=== PATIENT | female | born 1965 | race Caucasian/White ===

== ENCOUNTER 2018-05-24 20:40 | Inpatient (IN) | payer BC ==
[~2018-05-24] VITALS: Ht 160 cm; Wt 54.1 kg
[~2018-05-24 20:40] MED LIST: COLACE100 MG PO; PERCOCET 5/31 TABLET PO
[2018-05-24 21:06] LABS: BASOPHIL COUNT 0.1 K/uL (0-0.1); EOSINOPHIL (%) 1.4 % (0-5); EOSINOPHIL COUNT 0.1 K/uL (0-0.3); HEMATOCRIT 38.4 % (36.0-46.0); HEMOGLOBIN 13.3 G/DL (11.9-15.5); IMMATURE GRANULOCYTE (%) 0.3 % (0.0-0.7); LYMPHOCYTE (%) 24.1 % (15-42); LYMPHOCYTE COUNT 2.4 K/uL (1.0-2.8); MCH 30.3 PG (29.0-34.0); MCHC 34.6 G/DL (30.0-36.0); MCV 87.5 FL (83-99); MONOCYTE (%) 8.1 % (3-12); MONOCYTE COUNT 0.8 K/uL (0-0.8); NEUTROPHIL (%) 65.1 % (45-76); NEUTROPHIL COUNT 6.4 K/uL (1.8-6.4); PLATELET COUNT 461 K/uL (156-360); RBC DIS.WIDTH-CV 12.6 % (11.8-14.6); RBC DIS.WIDTH-SD 40.1 % (39-53); RED BLOOD COUNT 4.39 M/uL (3.80-5.20); WHITE BLOOD COUNT 9.9 K/uL (4.1-10.2)
[2018-05-24 21:15] LABS: ALBUMIN 4.3 g/dL (3.2-4.8)
[2018-05-24 21:16] LABS: CHLORIDE 104 mEq/L (99-109); POTASSIUM 3.8 mEq/L (3.7-5.4); SODIUM 140 mEq/L (136-147)
[2018-05-24 21:18] LABS: GLUCOSE 121 mg/dL (70-99); TOTAL PROTEIN 7.5 g/dL (6.4-8.3)
[2018-05-24 21:20] LABS: TOTAL BILIRUBIN 0.3 mg/dL (0.0-1.0)
[2018-05-24 21:21] LABS: ALKALINE PHOSPHATASE 68 IU/L (3-129)
[2018-05-24 21:21] LABS: APPEARANCE SL.HAZY ((CLEAR)); BILIRUBIN NEGATIVE; BLOOD NEGATIVE; COLOR YELLOW ((YELLOW)); GLUCOSE (STRIP) NEGATIVE; KETONES NEGATIVE; LEUKOCYTES MODERATE; NITRITE NEGATIVE; PROTEIN (STRIP) NEGATIVE; SPECIFIC GRAVITY 1.016 (1.000-1.030); UROBILINOGEN 0.2 MG/DL (0.2-1.0)
[2018-05-24 21:22] LABS: CREATININE 0.9 mg/dL (0.6-1.3); GFR ESTIMATE (CALCULATED) > 59 mL/min/
[2018-05-24 21:23] LABS: AST (GOT) 13 IU/L (2-34); UREA NITROGEN (BUN) 10 mg/dL (9-23)
[2018-05-24 21:25] LABS: ALT (GPT) 9 IU/L (3-49); LIPASE 9 U/L (1.0-51.0)
[2018-05-24 21:30] LABS: QUANTITATIVE HCG < 4.0 MIU/ML
[2018-05-24 21:32] LABS: BACTERIA RARE /HPF; EPITHELIAL CELLS RARE /HPF; MUCUS TRACE /LPF; UCUL ADDED? YES; WHITE BLOOD CELLS TNTC /HPF (0-5)
[2018-05-25] VITALS (7 sets, daily range): BP systolic 110–128; BP diastolic 54–62
[2018-05-25] MEDS ORDERED: MAGNESIUM 300300 MG PO (17:15)
[2018-05-25] MEDS ORDERED: VITAMIN B122500 MCG PO (17:15)
[2018-05-25] MEDS ORDERED: TYLENOL REGULA325 MG PO (17:16)
[2018-05-25] MEDS ORDERED: VITAMIN B COMP1 EACH PO (17:16)
[2018-05-25] MEDS ORDERED: NASAL DECONGEST10 MG PO (17:17)
[2018-05-26 04:07] VITALS: BP 134/61
[2018-05-26 06:49] LABS: CHLORIDE 104 MEQ/L (99-109); CREATININE 0.6 MG/DL (0.6-1.3); GFR ESTIMATE (CALCULATED) > 59 mL/min/; GLUCOSE 106 mg/dL (70-99); POTASSIUM 4.5 MEQ/L (3.7-5.4); SODIUM 138 MEQ/L (136-147); UREA NITROGEN (BUN) 5 mg/dL (9-23)
[2018-05-26 08:38] VITALS: BP 119/57
[2018-05-26 12:22] VITALS: BP 114/52
[2018-05-26 16:52] VITALS: BP 120/56
[2018-05-26 19:41] VITALS: BP 130/65
[2018-05-26 22:44] VITALS: BP 144/66
[2018-05-27 05:25] LABS: HEMATOCRIT 34.8 % (36.0-46.0); HEMOGLOBIN 11.4 G/DL (11.9-15.5); MCHC 32.8 G/DL (30.0-36.0); MCV 88.5 FL (83-99); PLATELET COUNT 384 K/uL (156-360); RBC DIS.WIDTH-CV 12.5 % (11.8-14.6); RBC DIS.WIDTH-SD 40.8 % (39-53); RED BLOOD COUNT 3.93 M/uL (3.80-5.20); WHITE BLOOD COUNT 6.9 K/uL (4.1-10.2)
[2018-05-27 05:49] LABS: CHLORIDE 105 MEQ/L (99-109); CREATININE 0.6 MG/DL (0.6-1.3); GFR ESTIMATE (CALCULATED) > 59 mL/min/; GLUCOSE 138 mg/dL (70-99); POTASSIUM 4.1 MEQ/L (3.7-5.4); SODIUM 141 MEQ/L (136-147); UREA NITROGEN (BUN) 7 mg/dL (9-23)
[2018-05-27 07:53] VITALS: BP 144/69
[2018-05-27] MEDS ORDERED: Milk Of Magnesia,MOM PO (10:46)
[2018-05-27] MEDS ORDERED: ENDOCET 5-3251 EACH PO (10:46)
[2018-05-27] MEDS ORDERED: CEFTIN500 MG PO (10:46)
== END 2018-05-27 12:18 | disposition home or self-care (01) | DRG 690 ==
LOC: EME 20:40 → 2EAST 23:56 → EDOF 23:56 → ENRESERV 05-25 00:06 → 2EAST 05-25 00:58
PROVIDERS: Family Medicine; Physician Assistant; Physician Assistant Medical
DX: N13.6 Pyonephrosis (principal); Z87.440 Personal history of urinary (tract) infections; Z90.710 Acquired absence of both cervix and uterus; Z86.73 Personal history of transient ischemic attack (TIA), and cerebral infarction without residual deficits
CPT/HCPCS: 74019; 74177; 76856; 80048; 80053; 81003; 83605; 83690; 84702; 85025; 85027; 87040; 87077; 87086; 87186; 99281; 99285; J0692; J0696; J1170; J1200; J1885; J2405; J2765; J3010; J3480; J7030